=== PATIENT | female | born 1955 | race Caucasian/White ===

== ENCOUNTER 2018-01-05 16:58 | Emergency (ER) | payer OTHER ==
[~2018-01-05] VITALS: Ht 162.6 cm; Wt 133.8 kg
[2018-01-05 18:10] LABS: HEMATOCRIT 46.7 % (37.0-47.0); HEMOGLOBIN 15.3 gm/dL (12.0-15.0); MCH 29.7 pg (26.0-34.0); MCHC 32.7 g/dL (28.0-37.0); MCV 90.8 fL (80.0-100.0); MPV 8.1 fl. (7.2-11.1); NUCLEATED RBCS 0 /100WBC; PLATELET COUNT* 380 thou/uL (150-400); RBC 5.15 mil/uL (4.20-5.00); RDW-CV 13.9 % (10.5-14.5); WBC 21.5 thou/uL (4.0-11.0)
[2018-01-05 18:20] LABS: ANION GAP 4 mmol/L (7-16); BUN 28 mg/dL (7-18); CALCIUM 8.4 mg/dL (8.5-10.1); CHLORIDE 104 mmol/L (98-107); CO2 27 mmol/L (21-32); GLUCOSE 139 mg/dL (70-99); POTASSIUM 4.6 mmol/L (3.5-5.1); SODIUM 135 mmol/L (136-145)
[2018-01-05 18:27] LABS: ALBUMIN 3.5 g/dL (3.4-5.0); ALKALINE PHOSPHATASE 94 U/L (46-116); SGOT 42 U/L (15-37); SGPT 44 U/L (30-65); TOTAL BILIRUBIN 0.3 mg/dL (<0.1-1.0); TOTAL PROTEIN 7.4 g/dL (6.4-8.2); TROPONIN-I LEVEL <0.06 ng/mL (<0.06)
[2018-01-05 18:33] LABS: ABSOLUTE LYMPHOCYTES 1.9 thou/uL (0.8-5.3); ABSOLUTE MONOCYTES 0.4 thou/uL (0.0-1.2); ABSOLUTE NEUTROPHILS 19.1 thou/uL (1.6-8.1); PLATELET ESTIMATE ADEQUATE
[2018-01-05] MEDS ORDERED: TRANSDERM-SCOP1 EACH TRANSDERM (19:01)
[2018-01-05 19:23] VITALS: BP 132/68
--- NOTE | 2018-01-06 13:59 | EKG ---
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
== END 2018-01-05 19:24 | disposition home or self-care (01) ==
LOC: M.ERS 16:58
PROVIDERS: Nurse Practitioner Family
DX: H81.10 Benign paroxysmal vertigo, unspecified ear (principal); I10 Essential (primary) hypertension; Z88.6 Allergy status to analgesic agent

== ENCOUNTER → 2018-01-22 | Outpatient (CLI) | payer OTHER ==
[~2018-01-22] MED LIST: TRANSDERM-SCOP1 EACH TRANSDERM
== END ==
LOC: M.MRI 07:53
DX: I73.89 Other specified peripheral vascular diseases (principal); R90.82 White matter disease, unspecified; R27.0 Ataxia, unspecified; R29.2 Abnormal reflex

== ENCOUNTER 2019-09-22 04:16 | Emergency (ER) | payer OTHER ==
[~2019-09-22] VITALS: Ht 160 cm; Wt 149.7 kg
[2019-09-22] MEDS ORDERED: NEXIUM40 MG PO (04:28)
[2019-09-22 04:36] LABS: URINE BLOOD 3+ (Negative); URINE GLUCOSE-RANDOM NEGATIVE (Negative); URINE KETONES TRACE (Negative); URINE NITRITE-REFLEX NEGATIVE (Negative); URINE PROTEIN 2+ (Negative); URINE SPECIFIC GRAVITY 1.025 (1.005-1.030); URINE UROBILINOGEN 0.2 E.U./dl (0.2-1.0)
[2019-09-22 04:38] LABS: HEMOGLOBIN 13.7 gm/dL (12.0-15.0); MPV 7.7 fl. (7.2-11.1); NUCLEATED RBCS 0 /100WBC; RDW-CV 15.1 % (10.5-14.5)
[2019-09-22 04:38] LABS: URINE BILIRUBIN 1+ (Negative); URINE CLARITY SL CLOUDY; URINE COLOR DARK YELLOW; URINE LEUKOCYTES-REFLEX 2+ (Negative)
[2019-09-22 04:40] LABS: ABSOLUTE BASOPHILS 0.1 thou/uL (0.0-0.2); ABSOLUTE EOSINOPHILS 0.2 thou/uL (0.0-0.7); ABSOLUTE LYMPHOCYTES 3.7 thou/uL (0.8-5.3); ABSOLUTE MONOCYTES 0.9 thou/uL (0.0-1.2); ABSOLUTE NEUTROPHILS 8.5 thou/uL (1.6-8.1); EOSINOPHILS 1.5 %; HEMATOCRIT 41.7 % (37.0-47.0); LYMPHOCYTES 27.5 %; MCH 29.1 pg (26.0-34.0); MCHC 32.8 g/dL (28.0-37.0); MCV 88.7 fL (80.0-100.0); MONOCYTES 6.6 %; PLATELET COUNT* 385 thou/uL (150-400); POLYS 63.4 %; WBC 13.5 thou/uL (4.0-11.0)
[2019-09-22 04:47] LABS: BACTERIA-REFLEX 1-9 Few /HPF (None Seen); CASTS None Seen /LPF (None Seen); CRYSTALS None Seen /LPF (None Seen); MUCUS 0-3 Light strn/LPF (None Seen); SQUAMOUS 4-10 Moderate /LPF (0-3); URINE RBC >20 Many /HPF (0-2); URINE WBC-REFLEX 0-5 Rare /HPF (0-5)
[2019-09-22 04:51] LABS: CALCIUM 8.6 mg/dL (8.5-10.1); CREATININE 1.2 mg/dL (0.6-1.3); POTASSIUM 3.4 mmol/L (3.5-5.1)
[2019-09-22 04:52] LABS: ALBUMIN 3.5 g/dL (3.4-5.0); TOTAL BILIRUBIN 0.2 mg/dL (<0.1-1.0); TOTAL PROTEIN 7.5 g/dL (6.4-8.2)
[2019-09-22] MEDS ORDERED: PROVERA10 MG PO (09:20)
[2019-09-22 11:12] VITALS: BP 111/74
== END 2019-09-22 11:13 | disposition home or self-care (01) ==
LOC: M.ERS 04:16
PROVIDERS: Emergency Medicine
DX: N93.8 Other specified abnormal uterine and vaginal bleeding (principal); N85.00 Endometrial hyperplasia, unspecified; I10 Essential (primary) hypertension; Z90.49 Acquired absence of other specified parts of digestive tract; Z88.5 Allergy status to narcotic agent; Z91.040 Latex allergy status